=== PATIENT | female | born 1990 | race African-American/Black ===

== ENCOUNTER 2020-01-19 12:29 | Emergency (ER) | payer MEDICAID ==
[~2020-01-19] VITALS: Ht 158.8 cm; Wt 68.0 kg
[2020-01-19 16:19] VITALS: BP 130/85
== END 2020-01-19 16:23 | disposition home or self-care (01) ==
LOC: ER 12:29
DX: O26.892 Other specified pregnancy related conditions, second trimester (principal); Z3A.14 14 weeks gestation of pregnancy
CPT/HCPCS: 99281; 99282